=== PATIENT | male | born 1965 | race Caucasian/White ===

== ENCOUNTER → 2019-06-11 | Outpatient (CLI) | payer OTHER ==
--- NOTE | 2019-06-11 09:15 | CT ---
EXAMINATION TYPE: CT abdomen pelvis wo con DATE OF EXAM: 06/11/2019 COMPARISON: None HISTORY: 53-year-old male lymphadenopathy CT DLP: 1310 mGycm. Automated exposure control for dose reduction was used. TECHNIQUE: Contiguous axial scanning of the abdomen and pelvis without IV contrast. Coronal and sagit yoana reconstructions performed. FINDINGS: Heart normal size without pericardial effusion. Lung bases clear without pleural effusion. Liver borderline in size at 17.5 cm with markedly diminished attenuation. Gallstones measuring up to 1.2 cm. No abnormal gallbladder distention. Otherwise, noncontrast appearance of the adrenal glands, right kidney, spleen, and pancreas appear wi thin normal limits. 3 mm nonobstructive left midpole renal calculus. A 4 mm calcification in right side of the pelvis is a long the course of the distal right ureter. No dilated small bowel, free fluid, or free air. No mesenteric or retroperitoneal lymphadenopathy. Small fatty umbilical hernia. Mild overall stool burden. There is focal area of ovoid mixed fat and stranding density measuring 2.5 cm along the anterior preston in of the colon at the junction of the descending and sigmoid colon, referred axial image 64. No selam colonic inflammatory change. Appendix not clearly identified. Bladder is collapsed. Prostate gland measures 3.6 cm wide. No pelvic lymphadenopathy or abnormal flui d collection. Bones: Mild degenerative changes at the hips. Moderate to severe degenerative disc disease L5-S1. Luanne dging anterior plate spondylosis lower thoracic spine can be seen with dish. IMPRESSION: 1. A focal ovoid area of mixed soft tissue stranding and fat density along the junction of the desce nding and sigmoid colon can be seen with epiploic appendagitis. Correlate for any left lower quadrant pain. 2. A 4 mm calcification in the right side of the pelvis is located along the course of the distal r ight ureter. However, there is no hydronephrosis or ureteric dilatation. This may represent an adjace nt phlebolith. Correlate for any renal colic and with urinalysis. 3. 3 mm nonobstructive left renal calculus. 4. Borderline hepatomegaly and severe hepatic steatosis. Correlate with LFTs, lipid profile, and pat ient risk factors. 5. Cholelithiasis. 6. No lymphadenopathy seen.
== END | disposition home or self-care (01) ==
LOC: RADCTMAIN 07:53
PROVIDERS: ATTEND Family Medicine
DX: N20.0 Calculus of kidney (principal); K76.0 Fatty (change of) liver, not elsewhere classified; K80.20 Calculus of gallbladder without cholecystitis without obstruction; K63.89 Other specified diseases of intestine; N28.89 Other specified disorders of kidney and ureter
CPT/HCPCS: 74176

== ENCOUNTER 2022-07-03 10:58 | Emergency (ER) | payer OTHER ==
[2022-07-03] MEDS ORDERED: LIDOCAINE 1% INJ 10MG/ML (30 ML VIAL-PF) SQ ONE (12:16)
[2022-07-03] MEDS ORDERED: DIPH,PERTUS(ACELL)TETVAC-LF 0.5 ML VIAL IM ONE (12:16)
--- NOTE | 2022-07-03 13:01 | ED ---
Wound/Laceration HPI - General Chief Complaint: Wound/Laceration Stated Complaint: [facility]- lip lac Time Seen by Provider: 07/03/22 12:11 Source: patient, RN notes reviewed Mode of arrival: ambulatory Limitations: no limitations - History of Present Illness Initial Comments: 56-year-old male presents emergency Department chief complaint of lip laceration. Patient states a lever struck him in the face. Patient did not lose conscious. Patient states his dentures broke. Patient states he has a laceration of lower lip unsure when his last tetanus was. Patient offers no other complaints. - Related Data Allergies Allergy/AdvReac Type Severity Reaction Status Date / Time No Known Allergies Allergy Verified 07/03/22 11:13 Review of Systems ROS Statement: Those systems with pertinent positive or pertinent negative responses have been documented in the HPI. ROS Other: All systems not noted in ROS Statement are negative. Past Medical History Past Medical History: No Reported History History of Any Multi-Drug Resistant Organisms: None Reported Additional Past Surgical History / Comment(s): Testicle Past Psychological History: No Psychological Hx Reported Smoking Status: Never smoker Past Alcohol Use History: None Reported Past Drug Use History: None Reported General Exam Limitations: no limitations General appearance: alert, in no apparent distress Head exam: Present: atraumatic, normocephalic, normal inspection Eye exam: Present: normal appearance, PERRL, EOMI. Absent: scleral icterus, conjunctival injection, periorbital swelling ENT exam: Present: mucous membranes moist. Absent: normal exam, normal oropharynx (Gaping laceration right lower lip internal and external total length 3 cm) Neck exam: Present: normal inspection, full ROM. Absent: tenderness, meningismus, lymphadenopathy Respiratory exam: Present: normal lung sounds bilaterally. Absent: respiratory distress, wheezes, rales, rhonchi, stridor Cardiovascular Exam: Present: regular rate, normal rhythm, normal heart sounds. Absent: systolic murmur, diastolic murmur, rubs, gallop, clicks Course Vital Signs 07/03/22 07/03/22 11:11 13:17 Temperature 98 F 97.9 F Pulse Rate 78 67 Respiratory 20 17 Rate Blood Pressure 132/78 152/86 O2 Sat by Pulse 99 95 Oximetry Procedures - Laceration Laceration #1 Consent Obtained: verbal consent Indication: laceration Site: lip Size (cm): 3 Description: stellate, irregular Depth: simple, single layer Anesthetic Used: lidocaine 1% Anesthesia Technique: local infiltration Amount (mls): 3 Pre-repair: wound explored, irrigated extensively, deep structures intact Type of Sutures: nylon, vicryl Size of Sutures: 5-0, 6-0 Number of Sutures: 7 Technique: simple, interrupted Patient Tolerated Procedure: well, no complications Medical Decision Making - Medical Decision Making Laceration was thoroughly cleaned, approximated using Vicryl and nylon sutures. Tetanus was updated we discussed return parameters and close follow-up. Disposition Clinical Impression: Laceration of lip Disposition: HOME SELF-CARE Condition: Stable Instructions (If sedation given, give patient instructions): Care For Your Stitches (ED), Facial Laceration (ED) Additional Instructions: Have sutures removed in 7 days.Please return to the Emergency Department if symptoms worsen or any other concerns. Is patient prescribed a controlled substance at d/c from ED?: No Referrals: Elbert Keating MD [Primary Care Provider] - 1-2 days Time of Disposition: 12:40
[2022-07-03 13:19] VITALS: BP 152/86; PULSE 67; RESP 17; TEMP 97.9
== END 2022-07-03 13:17 | disposition home or self-care (01) ==
LOC: EC 10:58
DX: Z23 Encounter for immunization (principal); S01.511A Laceration without foreign body of lip, initial encounter; W22.8XXA Striking against or struck by other objects, initial encounter
CPT/HCPCS: 90715; 12013; 99282; 90471; J2001

== ENCOUNTER → 2023-08-16 | Outpatient (CLI) | payer BC ==
--- NOTE | 2023-08-16 18:04 | CA ---
Transthoracic Echo Report Name: Fantasma Soliman Age: 58 Gender: M : 1965 Exam Date: 08/16/2023 14:32 Exam Location: [place] [facility] Ht (in): 74 Wt (lb): 295 Ordering Physician: Elbert Keating MD Attending/Referring Phys: Tami Holland [facility] Mason Foreman/Superintendant Renetta Munguia RDCS Procedure CPT: Indications: R06.09 Other forms of dyspnea Cardiac Hx: Technical Quality: Fair Contrast 1: Total Dose (mL): Contrast 2: Total Dose (mL): MEASUREMENTS (Male / Female) Normal Values 2D ECHO LV Diastolic Diameter PLAX 5.7 cm 4.2 - 5.9 / 3.9 - 5.3 cm LV Systolic Diameter PLAX 4.4 cm IVS Diastolic Thickness 1.4 cm 0.6 - 1.0 / 0.6 - 0.9 cm LVPW Diastolic Thickness 1.3 cm 0.6 - 1.0 / 0.6 - 0.9 cm LV Relative Wall Thickness 0.5 LA Volume 67.0 cm??? 18 - 58 / 22 - 52 cm??? LA Volume Index 24.9 cm???/m??? 16 - 28 cm???/m??? M-MODE Aortic Root Diameter MM 3.2 cm LA Systolic Diameter MM 4.5 cm LA Ao Ratio MM 1.4 AV Cusp Separation MM 2.0 cm DOPPLER AV Peak Velocity 160.8 cm/s AV Peak Gradient 10.3 mmHg AV Mean Velocity 96.4 cm/s AV Mean Gradient 4.5 mmHg AV Velocity Time Integral 28.3 cm AI Peak Velocity 345.3 cm/s AI Peak Gradient 47.7 mmHg AI Pressure Half Time 579.5 ms LVOT Peak Velocity 113.2 cm/s LVOT Peak Gradient 5.1 mmHg LVOT Velocity Time Integral 23.5 cm MV Area PHT 3.7 cm??? Mitral E Point Velocity 91.1 cm/s Mitral A Point Velocity 129.7 cm/s Mitral E to A Ratio 0.7 MV Deceleration Time 206.8 ms TR Peak Velocity 237.0 cm/s TR Peak Gradient 22.5 mmHg Right Ventricular Systolic Press 25.4 mmHg FINDINGS Left Ventricle Mild increased left ventricular wall thickness. Left ventricular cavity size normal. Normal left ventricular systolic function with no obvious regional wall motion abnormalities. Left ventricular ejection fraction is estimated at 55-60 %. Right Ventricle Mild right ventricular dilatation. Right ventricular systolic pressure within normal limits. Right Atrium Mild right atrial dilatation. Left Atrium Mildly increased left atrial volume. Mitral Valve Structurally normal mitral valve. Mild mitral regurgitation. Aortic Valve No aortic valve stenosis. Mild aortic regurgitation. Tricuspid Valve Structurally normal tricuspid valve. Mild tricuspid regurgitation. Pulmonic Valve Trace pulmonic regurgitation. Pericardium No pericardial effusion. Aorta Normal size aortic root and proximal ascending aorta. CONCLUSIONS Left ventricular ejection fraction is estimated at 55-60 %. No obvious regional wall motion abnormalities. Mild concentric LVH Mild biatrial dilatation Mild mitral regurg and mild aortic regurg Normal RVSP estimated at 25 mmHg Previewed by: Dr Tyler Brock (Electronically Signed) Final Date: 16 August 2023 18:04
== END | disposition home or self-care (01) ==
LOC: RADECHMAIN 14:23
PROVIDERS: ATTEND Family Medicine
DX: I51.7 Cardiomegaly (principal); I35.1 Nonrheumatic aortic (valve) insufficiency; I34.0 Nonrheumatic mitral (valve) insufficiency; R06.09 Other forms of dyspnea
CPT/HCPCS: 93306

== ENCOUNTER → 2024-11-25 | Outpatient (CLI) | payer BC ==
--- NOTE | 2024-11-25 08:46 | US ---
EXAMINATION TYPE: US abdomen complete DATE OF EXAM: 11/25/2024 COMPARISON: CT abdomen and pelvis 2018 CLINICAL INDICATION: Male, 59 years old with history of R10.9 UNSPECIFIED ABDOMINAL PAIN; Pain limita tions due to bowel gas. TECHNIQUE: Grayscale and color Doppler imaging of the abdomen was performed. FINDINGS: EXAM MEASUREMENTS: Liver Length: 13.9 cm Gallbladder Wall: Stones visualized. CBD: .6 cm, color Doppler imaging was utilized to isolate the common bile duct for measurement. Spleen: 11.3 cm Right Kidney: 11.4 x 5.3 x 3.7 cm Left Kidney: 12.6 x 6.2 x 4.7 cm [employer] NOTES: Pancreas: Obscured by bowel gas Liver: Increased attenuation, no dilated ducts, masses or cysts. Gallbladder: stones visualized Evidence for sonographic Tran's sign: no CBD: wnl Spleen: wnl Right Kidney: wnl, No hydronephrosis, calculi or masses seen Left Kidney: wnl, No hydronephrosis, calculi or masses seen Upper IVC: wnl Abd Aorta: wnl The liver is heterogeneously hyperechoic. Evaluation for focal masses suboptimal due to the heteroge neity. Finding consistent with diffuse fatty infiltrative hepatocellular disease. The intrahepatic po rtion of the IVC and proximal abdominal aorta are within normal limits. There are mobile shadowing g allstones. Common bile duct is unremarkable. Pancreas suboptimally evaluated due to overlying bowel gas. The spleen is unremarkable. Kidneys are symmetric and free of hydronephrosis. No renal lesion s are seen. IMPRESSION: Suboptimal study. Gallstones are present without ultrasound evidence for acute cholecysti tis. No acute findings clearly seen. [facility], , 11/25/2024 8:44 AM
== END | disposition home or self-care (01) ==
LOC: RADUSWWP 07:19
PROVIDERS: ATTEND Family Medicine
DX: K80.20 Calculus of gallbladder without cholecystitis without obstruction (principal)
CPT/HCPCS: 76700

== ENCOUNTER → 2025-03-18 | Outpatient (CLI) | payer BC ==
[2025-03-18 19:15] LABS: Basophils # (A) 0.08 X 10*3/uL (0.00-0.10); Basophils % (A) 0.8 %; Eosinophils # (A) 0.62 X 10*3/uL (0.04-0.35); Eosinophils % (A) 6.5 %; HCT 44.7 % (39.6-50.0); HGB 14.6 g/dL (13.0-17.0); Immature Grans, Automated 0.20 %; Lymphocytes # (A) 2.05 X 10*3/uL (0.90-5.00); Lymphocytes % (A) 21.4 %; MCH 29.5 pg (27.0-32.0); MCHC 32.7 g/dL (32.0-37.0); MCV 90.3 FL (80.0-97.0); Monocytes # (A) 0.96 X 10*3/uL (0.20-1.00); Monocytes % (A) 10.0 %; NRBC Per 100 WBC 0 X 10*3/uL (0.00-0.01); Neutrophils # (A) 5.84 X 10*3/uL (1.80-7.70); Neutrophils % (A) 61.1 %; Platelet Count 250 X 10*3/uL (140-440); RBC 4.95 X 10*6/uL (4.40-5.60); RDW 13.8 % (11.5-14.5); WBC 9.57 X 10*3/uL (4.50-10.00)
[2025-03-18 22:54] LABS: Alternaria alternata IgE <0.10 kU/L; Aspergillus fumagatus IgE <0.10 kU/L; Cat Epith & Dander IgE <0.10 kU/L; Cladosporian herbarum IgE <0.10 kU/L; Dermato. farinae IgE 1.07 kU/L; Oak IgE <0.10 kU/L; Ragweed,Common IgE <0.10 kU/L; Red Top (Bentgrass) IgE 20.90 kU/L
[2025-03-19 08:53] LABS: NT-Pro-B-Type Natriuretic Pept 39.0 pg/mL (0-125)
[2025-03-19 12:36] LABS: C-ANCA <1:20 Titer (<1:20)
== END | disposition home or self-care (01) ==
LOC: LABWHC1 14:24
PROVIDERS: ATTEND Internal Medicine
DX: J45.50 Severe persistent asthma, uncomplicated (principal); D72.18 Eosinophilia in diseases classified elsewhere; M30.1 Polyarteritis with lung involvement [Churg-Strauss]
CPT/HCPCS: 36415; 82785; 83880; 84484; 85025; 85652; 86003; 86038; 86140; 86255